=== PATIENT | male | born 2005 | race Caucasian/White ===

== ENCOUNTER 2025-04-05 16:51 | Emergency (ER) | payer BC, SELFPAY ==
[2025-04-05 16:56] VITALS: BP 119/83
[2025-04-05 17:14] LABS: Hematocrit 45.0 % (39.0-52.0); Hemoglobin 15.8 g/dL (13.0-18.0); Mean Corp Hgb Conc. 35.1 g/dL (33.0-37.0); Mean Corpuscular Volume 89.6 fL (80.0-94.0); Nucleated Red Blood Cells % 0 % (-); Platelet Count 165 10^3/uL (130-400); Red Cell Dist. Width 13.0 % (11.5-14.5)
[2025-04-05 17:32] LABS: ALT (SGPT) 22 U/L (0-50); AST (SGOT) 29 U/L (17-59); Albumin 4.7 g/dl (3.5-5.0); Alkaline Phosphatase 44 U/L (38-126); Blood Urea Nitrogen 19 mg/dl (9-20); Calcium 9.6 mg/dl (8.4-10.2); Carbon Dioxide 29 mmol/L (22-30); Chloride 103 mmol/L (98-107); Glucose 93 mg/dl (70-99); Lipase 33 U/L (23-300); Potassium 4.1 mmol/L (3.5-5.1); Sodium 137 mmol/L (135-145); Total Protein 7.4 g/dl (6.3-8.2); eGFR > 60.00
--- NOTE | 2025-04-05 19:45 | ED.GENMED ---
History of Present Illness
General
Chief Complaint: Abdominal Pain
Source: patient and family
Exam Limitations: none
Time Seen by Provider: 04/05/25 19:32
Nursing documentation reviewed up to this point in time: agreed with
History of Present Illness
History of Present Illness:
19-year-old male with no reported chronic medical issues presents to the ER with his parents (mother and father; father is an anesthesiologist) for evaluation of abdominal pain. Patient reports symptoms started 2 days ago and have been constant
since that time. He reports a vague aching in the periumbilical region. He says he has had decreased appetite/anorexia. He says he had some transient nausea/self-induced emesis on the first night but since then has not had any nausea or vomiting.
No diarrhea or constipation reported. Denies any testicular pain. Denies any urinary symptoms although he notes that today's urine seemed a bit dark. 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
physician) and was recommended to come to the ER for evaluation with concern possibly for appendicitis. Apparently he had a urinalysis earlier today which was normal.
Review of Systems
Review of Systems
All Other Systems: ROS reviewed and negative except as documented in HPI and ROS
Constitutional: Denies fever or chills
Respiratory: Denies trouble breathing
Cardiac: Denies chest pain
ABD/GI: Reports abdominal pain and anorexia; Denies nausea, vomiting, diarrhea or constipated
: Reports dark urine; Denies dysuria, frequency or flank pain
Musculoskeletal: Denies neck pain or back pain
Neurological: Denies dizzy or headache
Phy Exam
Physical Exam
Physical Exam:
General: Awake, alert; no acute distress
Head: Normocephalic, atraumatic
Eyes: Conjunctiva normal, sclera anicteric
Throat: Airway intact, handling secretions
Neck: Trachea midline
Lungs: Breathing comfortably no distress
Heart: Regular rate
Abd: Soft, non distended, mildly tender in the periumbilical region, no peritoneal signs, no appreciable masses or hernias
Back: No CVA tenderness
Skin: no rash in area of concern
Extremities: Warm and well-perfused
Scores
Heart Failure Risk
Heart Failure Risk Score: Not Applicable
Heart Score for Chest Pain Patients
STEMI patient?: Not applicable
Withdrawal Assessment of Alcohol
Withdrawal Assessment Completed?: Not applicable
Course
Orders/Labs/Results
Orders:
Orders
04/05/25 17:04
Complete Blood Count/With Diff Urgent
Comprehensive Metabolic Panel Urgent
Lipase Urgent
04/05/25 19:33
CT Abd/pel W Iv And Oral Contr Urgent
Comment:
Reason For Exam: RLQ abd pain
Iohexol [Omnipaque] See Protocol PO NOW STA
Abnormal Lab Results
04/05/25
17:04
MCH 31.5 H pg
(27.0-31.0)
Absolute Neuts (auto) 7.2 H 10^3/uL
(1.4-6.5)
Neutrophils % 75.6 H %
(42.2-75.2)
Lymphocytes % 16.9 L %
(20.5-51.1)
Total Bilirubin 2.8 H mg/dl
(0.2-1.3)
04/05/25 17:04
04/05/25 17:04
Vital Signs
Initial and Last Documented VS:
Initial Vital Signs
Temp Pulse Resp BP Pulse Ox
36.8 C 70 20 119/83 99
04/05/25 16:56 04/05/25 16:56 04/05/25 16:56 04/05/25 16:56 04/05/25 16:56
Last Documented Vital Signs
Temp Pulse Resp BP Pulse Ox
37.4 C 60 14 126/66 100
04/05/25 22:28 04/05/25 22:28 04/05/25 22:28 04/05/25 22:28 04/05/25 22:28
MDM/Problems Addressed
Differential Diagnosis Includes:
Appendicitis, enteritis, mesenteric adenitis, ileitis/Crohn's/UC, hernia, nephrolithiasis
MDM/Problems Addressed:
19-year-old male presents for evaluation of vague periumbilical abdominal pain for the past 2 days associate with anorexia. 1 episode of self-induced emesis shortly after onset of symptoms but no nausea/vomiting since and no diarrhea or
constipation noted. Vitals and exam as above. He had lab work sent in triage including a CBC which shows no significant leukocytosis�neutrophil count high normal 75%. CMP did show elevated bilirubin without any other LFT abnormalities. Lipase
normal. Plan to send for a CT of the abdomen pelvis. Reassess after the above.
CT shows findings consistent with mesenteric adenitis. Stable for discharge advised follow-up with primary care physician. NSAIDs as needed. Spoke about return precautions all questions answered. Provided a copy of CT report for follow-up.
*Radiology
Radiology exam reviewed: radiology read reviewed
*Pulse Oximetry
SaO2: 99
Oxygen Mode of Delivery: Room air
Patient hypoxic: no (99%)
*Critical Care Note
Total Time (30-74mins, 75-104mins- exclusive of procedures): Not Applicable
Data Reviewed
Source: patient and family
ED Attending Note
-
Portions of this chart may have been created with voice recognition software.� Occasional wrong word or��sound alike� substitutions may have occurred due to the inherent limitations of voice recognition software.
Discharge Plan
Departure
Patient Disposition: Home (Routine Discharge)
Date of Disposition: 04/05/25
Time of Disposition: 23:03
Patient with high blood pressure during this ER visit?: No
Discharge Problem:
Mesenteric adenitis
Instructions: Mesenteric Lymphadenitis (DC)
Prescriptions:
No Action
No Current Medications
0
Referrals:
Quentin Sanders MD [Family Provider] - Call in 1-3 days for appt
Activity Restrictions/Additional Instructions:
Thank you for visiting the Emergency Department at [facility].
1. Please schedule a follow up appointment as directed. Call first thing tomorrow morning to make an appointment.
2. If indicated, please take your medications as instructed and indicated on discharge paperwork.
3. If any of your symptoms do not improve, or persist, or become more severe within 6-12 hours, please return to the emergency department for further care.
4. Please return to the emergency department if you develop a headache, neck pain/stiffness, fever greater than 100.4F, chest pain, shortness of breath, persistent nausea, vomiting, slurred speech, difficulty walking, numbness/tingling, weakness,
signs of infection or any other symptoms that are worrisome to you.
Please call [phone] if you have any questions.
Interventions
Interventions:
*Risk Screen - Suicide Last Done: 04/05/25 16:56
*General Assessment Last Done: 04/05/25 16:56
*Neglect/Abuse Screening Last Done: 04/05/25 16:56
*ED- Fall Risk Assessment Last Done: 04/05/25 20:40
FJ-Zlpkxn-[id number] Assessment Last Done: 04/05/25 20:40
Discharge Date and Time
Print Language: CHADIAN
[2025-04-05 20:18] VITALS: BMI 20.2
[2025-04-05 20:20] VITALS: BMI 22.1
[2025-04-05 20:24] VITALS: BP 125/70
[2025-04-05] MEDS: OMNIPAQUE 50 ML PO (20:32)
--- NOTE | 2025-04-05 20:53 | EDRN ---
Pt with 2-3 days of dull periumbilical pain that waxes and wanes. Pt has been able to play different sports games without difficulty. Pt made himself vomit once. Pt with decreased appetite. GI bug going around at camp which is what pt thought he
had. Pt came to ED to r/p appendicitis. Pt denies fever/chills/cough, n/v (1 episode self induced), diarrhea/constipation, urinary symptoms. Pain worse with jumping. No pain meds taken
[2025-04-05 22:28] VITALS: BP 126/66
== END 2025-04-05 23:20 | disposition home or self-care (01) ==
LOC: EMR 16:51
PROVIDERS: Emergency Medicine; EMERGENCY PHYSICIAN Emergency Medicine; FAMILY PHYSICIAN General Practice
DX: I88.0 Nonspecific mesenteric lymphadenitis (principal)
CPT/HCPCS: 99284; 74177; 80053; 83690; 85025; Q9967